=== PATIENT | male | born 1960 | race Caucasian/White ===

== ENCOUNTER 2017-06-27 01:26 | Emergency (ER) | payer OTHER ==
[2017-06-27 01:43] VITALS: BP 137/90; PULSE 86; TEMP 97.9; BMI 29.9
--- NOTE | 2017-06-27 02:30 | PDOC ---
History of Present Illness - General Chief Complaint: Eye Problem Stated Complaint: FOREIGN OBJECT/EYE PAIN Time Seen by Provider: 06/27/17 01:37 History Source: Patient Exam Limitations: No Limitations - History of Present Illness Initial Comments: 06/27/17 02:25 57yo Male patient with no significant past medical history presents to ED c/o foreign body sensation in right eye. Patient states while removing something from his cabinet, dust fell into his eye. He states flushing with water and using Visine with no relief. Patient reports corrective lens use. He denies any other complaints at this time. Past History - Travel Traveled outside of the country in the last 30 days: No Close contact w/someone who was outside of country & ill: No - Past Medical History Allergies/Adverse Reactions: Allergies Allergy/AdvReac Type Severity Reaction Status Date / Time No Known Allergies Allergy Verified 06/27/17 01:39 Home Medications: Ambulatory Orders Aspirin [ASA -] 81 mg PO DAILY 08/09/13 Rosuvastatin [Crestor -] 5 mg PO HS 08/09/13 Hypercholesterolemia: Yes - Surgical History Neurologic Surgery: Yes (neck) - Immunization History Immunization Up to Date: No - Suicide/Smoking/Psychosocial Hx Smoking History: Never smoked Have you smoked in the past 12 months: No Number of Cigarettes Smoked Daily: 40 Information on smoking cessation initiated: No Hx Alcohol Use: (social) Drug/Substance Use Hx: No Substance Use Type: Alcohol Review of Systems - Review of Systems Able to Perform ROS?: Yes Is the patient limited Samoan proficient: No HEENTM: Yes: Eye Pain, Tearing. No: Blurred Vision, Recent change in vision, Double Vision, Cataracts, Ear Pain All Other Systems: Reviewed and Negative *Physical Exam - Vital Signs Last Vital Signs Temp Pulse Resp BP Pulse Ox 97.9 F 86 18 137/90 98 06/27/17 01:36 06/27/17 01:36 06/27/17 01:36 06/27/17 01:36 06/27/17 01:36 - Physical Exam General Appearance: Yes: Nourished, Appropriately Dressed, Mild Distress. No: Apparent Distress, Moderate Distress, Severe Distress HEENT: positive: EOMI, MANISHA, Normal ENT Inspection, Normal Voice, Symmetrical, TMs Normal, Pharynx Normal. negative: Pharyngeal Erythema, Tonsillar Exudate, Tonsillar Erythema, Hearing Decreased, Hearing Grossly Normal, TM Bulging, TM Erythema, Excessive drooling Neck: positive: Trachea midline, Normal Thyroid, Supple. negative: Rigid, Stridor, Lymphadenopathy (R), Lymphadenopathy (L), Tender lateral, Tender midline Respiratory/Chest: positive: Lungs Clear, Normal Breath Sounds. negative: Chest Tender, Respiratory Distress, Accessory Muscle Use, Labored Respiration, Rapid RR Cardiovascular: positive: Regular Rhythm, Regular Rate Musculoskeletal: positive: Normal Inspection. negative: CVA Tenderness, Vertebral Tenderness Extremity: positive: Normal Capillary Refill, Normal Inspection, Normal Range of Motion. negative: Pedal Edema, Swelling, Calf Tenderness, Erythema, Inflammation Integumentary: positive: Normal Color, Dry, Warm Neurologic: positive: vascular manager II-XII NML intact, Fully Oriented, Alert, Normal Mood/ Affect, Normal Response, Motor Strength 5/5 Procedures - Eye Procedure Alcaine Drops Administered: Yes Eye Irrigated w/ Saline(Sascha Lens): No Antibiotic Oinment/Drps Admin: right eye Progress: 06/27/17 02:29 Slits lamp exam reveals no foreign body. Eye stained with fluroscent and no corneal abrasion noted. *DC/Admit/Observation/Transfer Diagnosis at time of Disposition: Pain of right eye, Sensation of foreign body in eye - Discharge Dispostion Disposition: HOME Condition at time of disposition: Improved Admit: No - Patient Instructions Printed Discharge Instructions: DI for Eye Pain Additional Instructions: Follow up with your construction controller within 48 hours for further evaluation. Administer eye drops: 2 drops every 3 hours while awake x 7 days or until seen by construction controller. Print Language: SRI LANKAN
[2017-06-27] MEDS ORDERED: SULFACETAMIDE SODIUM 10% OPHTHALMIC DROPS 15 ML BOTTLE OD ONE (02:34)
[2017-06-27] MEDS ORDERED: SULFACETAMIDE/PREDNISOLONE 0.2% OPTHALMIC SUSP 5 ML BOTTLE ONE (02:37)
== END 2017-06-27 02:42 | disposition home or self-care (01) ==
LOC: JER 01:26
DX: T15.81XA Foreign body in other and multiple parts of external eye, right eye, initial encounter (principal); X58.XXXA Exposure to other specified factors, initial encounter; Y93.89 Activity, other specified; Y92.019 Unspecified place in single-family (private) house as the place of occurrence of the external cause; E78.00 Pure hypercholesterolemia, unspecified
CPT/HCPCS: 99281-25

== ENCOUNTER 2021-06-11 17:24 | Emergency (ER) | payer OTHER ==
[2021-06-11 17:31] VITALS: BP 138/71; PULSE 91; TEMP 98; BMI 29.9
[2021-06-11] MEDS ORDERED: ACETAMINOPHEN 500 MG TABLET (FP) PO ONE (18:13)
== END 2021-06-11 18:57 | disposition home or self-care (01) ==
LOC: JER 17:24
DX: R22.42 Localized swelling, mass and lump, left lower limb (principal)
CPT/HCPCS: 93971-TC; 99284-25